=== PATIENT | female | born 2000 | race Caucasian/White ===

== ENCOUNTER → 2022-06-24 | Emergency (ER) | payer MEDICAID ==
[~2022-06-24] VITALS: Ht 154.9 cm; Wt 70.5 kg
[~2022-06-24] MED LIST: BENZ-38 PO; GUAI400T92 PO; acetaminophen 325mg tablet PO STA; normal saline 1000ML IV soln IV ONE
[2022-06-24 17:12] VITALS: BP 155/88
[2022-06-24 17:55] LABS: BASOPHILS % (AUTO) 0.2 % (0-1); EOSINOPHILS # (AUTO) 0.5 X10'3 (0-0.9); HEMATOCRIT 43.8 % (35.0-45.0); LYMPHOCYTES # (AUTO) 1.9 X10'3 (1.1-4.8); LYMPHOCYTES % (AUTO) 12.3 % (21-51); MEAN CORPUSCULAR HGB CONC 34.2 g/dL (33.0-36.5); MEAN CORPUSCULAR VOLUME 87.8 FL (78-98); MONOCYTES # (AUTO) 0.9 X10'3 (0-0.9); MONOCYTES % (AUTO) 5.9 % (2-12); NEUTROPHILS # (AUTO) 11.9 X10'3 (1.8-7.7); NEUTROPHILS % (AUTO) 78.6 % (42-75); PLATELET COUNT 289 X10'3 (140-440); RED BLOOD COUNT 4.99 X10'6 (4.20-5.60); WHITE BLOOD COUNT 15.2 X10'3 (4.5-11.0)
[2022-06-24 17:56] LABS: HCG SERUM QL NEGATIVE
[2022-06-24 18:11] LABS: ALANINE AMINOTRANSFERASE 22 U/L (12-78); ALBUMIN 4.1 G/DL (3.4-5.0); ALBUMIN/GLOBULIN RATIO 1.1 (1.1-1.5); ALKALINE PHOSPHATASE 81 IU/L (46-116); ANION GAP 8 (8-16); ASPARTATE AMINO TRANSFERASE 18 U/L (10-37); BILIRUBIN,TOTAL 0.8 MG/DL (0.1-1.0); BLOOD UREA NITROGEN 11 MG/DL (7-18); BUN/CREATININE RATIO 15.3 (6.6-38.0); CALCIUM 8.9 MG/DL (8.5-10.1); CHLORIDE 106 MMOL/L (99-107); CREATININE 0.72 MG/DL (0.40-0.90); GLUCOSE 98 MG/DL (70-104); POTASSIUM 3.8 MMOL/L (3.5-5.1); SODIUM 139 MMOL/L (135-145); TOTAL CARBON DIOXIDE 25.5 MMOL/L (24-32); TOTAL PROTEIN 7.9 G/DL (6.4-8.2); eGFR > 90 ML/MIN
== END | disposition home or self-care (01) ==
LOC: ER 16:48
DX: B34.9 Viral infection, unspecified (principal); Z20.822 Contact with and (suspected) exposure to COVID-19; J02.9 Acute pharyngitis, unspecified; R07.89 Other chest pain; R09.89 Other specified symptoms and signs involving the circulatory and respiratory systems; Z72.89 Other problems related to lifestyle
CPT/HCPCS: 36415; 80053; 84145; 84703; 85025; 87081; 87502; 87503; 87635; 87880; 99283; C9803

== ENCOUNTER 2024-05-16 23:54 | Emergency (ER) | payer BC, MEDICAID ==
[~2024-05-16] VITALS: Ht 154.9 cm; Wt 65.9 kg
[~2024-05-16 23:54] MED LIST changes: -BENZ-38 PO; -acetaminophen 325mg tablet PO STA; -normal saline 1000ML IV soln IV ONE
[2024-05-16 23:56] VITALS: BP 142/87; TEMP 98.3
[2024-05-17] MEDS: methylPREDNISolone sod succ 125mg/2ml vial IM ONE (00:52)
[2024-05-17] MEDS ORDERED: EPIN0.3P3 IM (01:28)
[2024-05-17 01:41] VITALS: PULSE 98; RESP 20; O2SAT 100
== END 2024-05-17 01:42 | disposition home or self-care (01) ==
LOC: ER 23:55
DX: T78.49XA Other allergy, initial encounter (principal); R07.89 Other chest pain; Z91.018 Allergy to other foods; Z88.8 Allergy status to other drugs, medicaments and biological substances; X58.XXXA Exposure to other specified factors, initial encounter
CPT/HCPCS: 93005; 96372; 99283; J2919